=== PATIENT | female | born 1990 | race Caucasian/White ===

== ENCOUNTER 2017-06-29 05:42 | Day surgery (SDC) | payer BC, OTHER ==
[2017-06-23 13:12] LABS: HEMATOCRIT 42.4 % (36.0-47.0); HEMOGLOBIN 14.3 g/dL (12.0-15.5); MEAN CORPUSCULAR HEMOGLOBIN 31.1 pg (27.0-33.4); MEAN CORPUSCULAR HGB CONC 33.8 g/dL (32.0-36.0); MEAN CORPUSCULAR VOLUME 92 fl (80-97); PLATELET COUNT 271 10^3/uL (150-450); RED CELL DISTRIBUTION WIDTH 12.1 % (11.5-14.0); WHITE BLOOD COUNT 7.2 10^3/uL (4.0-10.5)
[2017-06-23 13:31] LABS: APPEARANCE,URINE SLIGHTLY-CLOUDY; BILIRUBIN,URINE NEGATIVE (NEGATIVE); COLOR,URINE YELLOW; GLUCOSE, URINE NEGATIVE (NEGATIVE); KETONES,URINE NEGATIVE (NEGATIVE); LEUKOCYTE ESTERASE,URINE MODERATE (NEGATIVE); NITRITE,URINE NEGATIVE (NEGATIVE); PROTEIN,URINE NEGATIVE (NEGATIVE); UROBILINOGEN,URINE NEGATIVE mg/dL (<2.0)
[2017-06-23 13:38] LABS: ALANINE AMINOTRANSFERASE 44 U/L (9-52); ALBUMIN 4.4 g/dL (3.5-5.0); ALKALINE PHOSPHATASE 64 U/L (38-126); ANION GAP 10 (5-19); ASPARTATE AMINO TRANSFERASE 26 U/L (14-36); BILIRUBIN,DIRECT 0.4 mg/dL (0.0-0.4); BILIRUBIN,TOTAL 0.6 mg/dL (0.2-1.3); BLOOD UREA NITROGEN 9 mg/dL (7-20); CALCIUM 9.3 mg/dL (8.4-10.2); CARBON DIOXIDE 25 mmol/L (22-30); CHLORIDE 106 mmol/L (98-107); GLUCOSE 93 mg/dL (75-110); POTASSIUM 4.4 mmol/L (3.6-5.0); SODIUM 140.8 mmol/L (137-145); TOTAL PROTEIN 7.5 g/dL (6.3-8.2)
[~2017-06-29 05:42] MED LIST: CEFAZOLIN 2 GM/D5W RTU 2 GM/50 ML RTUPB IV PRN; LACTATED RINGERS 1000 ML IV PRN
[2017-06-29] MEDS ORDERED: FENTANYL CITRATE INJ/PF 100 MCG/2 ML AMPUL ONE (06:37)
[2017-06-29] MEDS ORDERED: MIDAZOLAM 2 MG/2 ML INJ ONE (06:37)
[2017-06-29] MEDS ORDERED: PROPOFOL INJ 200 MG/20 ML VIAL IV ONE (06:39)
[2017-06-29] MEDS ORDERED: ACETAMINOPHEN 100 ML IV ONE (06:40)
[2017-06-29] MEDS ORDERED: FENTANYL CITRATE INJ/PF 250 MCG/5 ML AMPULE ONE (06:40)
[2017-06-29] MEDS ORDERED: ONDANSETRON HCL INJ/PF 4 MG/2 ML SDV IV PRN ×2 (09:02→11:40)
[2017-06-29] MEDS ORDERED: DIPHENHYDRAMINE HCL 50 MG/ML VIAL IV PRN (09:02)
[2017-06-29] MEDS ORDERED: MEPERIDINE HCL/PF INJ 25 MG/1 ML DISP.SYRIN IV PRN (09:02)
[2017-06-29] MEDS ORDERED: PROMETHAZINE HCL INJ 25 MG/1 ML VIAL IV PRN (09:02)
[2017-06-29] MEDS ORDERED: FENTANYL CITRATE INJ/PF 100 MCG/2 ML AMPUL IV PRN ×3 (09:02)
[2017-06-29] MEDS ORDERED: SUGAMMADEX SODIUM 200 MG/2 ML SDV IV ONE (10:01)
[2017-06-29] MEDS: FENTANYL CITRATE INJ/PF 100 MCG/2 ML AMPUL ONE ×2 (10:48→10:53)
[2017-06-29] MEDS ORDERED: NALBUPHINE HCL INJ 10 MG/1 ML AMPULE IV PRN (11:41)
[2017-06-29] MEDS ORDERED: OXYCODONE-ACETAMINOPHEN 5-325 MG TABLET PO PRN ×2 (11:41→11:42)
--- NOTE | 2017-06-29 11:44 | OPERATIVE REPORT E ---
Operative Report NAME: CAROL LANDEROS : 1990 AGE: 27Y DATE OF SURGERY: 06/29/2017 ROOM: PREOPERATIVE DIAGNOSIS: Excessive and frequent menstruation with irregular cycle. POSTOPERATIVE DIAGNOSIS: Excessive and frequent menstruation with irregular cycle. PROCEDURE: Robotic hysterectomy. SURGEON: VENESSA BRITT M.D. ANESTHESIA: General. COMPLICATIONS: None. FINDINGS: Normal tubes and ovaries. Small uterus. ESTIMATED BLOOD LOSS: 25 mL. PROCEDURE NOTE: Patient was taken to the OR and placed in a supine position. General anesthesia was induced. She was placed in a dorsal lithotomy position using Burton stirrups. Her perineum, vagina, and abdomen were prepared and draped in a sterile fashion. She was placed in steep Trendelenburg and tolerated the positioning well. At this point a speculum was placed in the vagina and the anterior lip of the cervix was grasped with a tenaculum. The uterus sounded to 8 cm. The V-care uterine manipulator was then placed. A Delgado catheter was placed as well. We then turned our attention to the abdomen and an incision was made 5 cm above the umbilicus. This was carried down to the level of the fascia which was grasped with Ailyn clamps and elevated. The fascia was incised allowing a blunt port to be placed. Laparoscopy confirmed appropriate placement and the abdomen was insufflated with CO2 gas. Next, the lateral ports were placed for the robot. We did use the long ports because of her girth. These were placed under laparoscopic visualization. Next, the right lower quadrant insufflation port was placed under laparoscopic visualization as well. The robot was brought to the table and docked. We used a bipolar cautery on the left and monopolar marisela on the right. View of the pelvis was good. The left round ligament was cauterized with bipolar and cut with monopolar marisela. The left utero-ovarian pedicle was also cauterized and cut and the left broad ligament was cauterized with bipolar cautery and cut with monopolar marisela. The anterior leaflet of the broad ligament was incised creating a bladder flap. Attention was turned to the right side of the uterus. The round ligament was cauterized with bipolar cautery and cut with monopolar marisela. The utero-ovarian pedicle likewise was cauterized and cut and the broad ligament also cauterized and cut with bipolar cautery and monopolar marisela. Now we are at the level of the uterine arteries. The bladder flap had been developed previously. Next the uterine arteries were cauterized close to the body of the cervix with bipolar cautery and cut with monopolar marisela bilaterally. Now we are at the level of the cardinal ligaments and these were likewise cauterized with bipolar cautery and cut with monopolar marisela very close to the cervix. Upon reaching the vaginal angles, a circumferential incision was made with the monopolar marisela on top of the V-care cup. The uterus was removed through the vagina. The vaginal cuff was inspected and there was no active bleeding noted. Next, the monopolar marisela was replaced with a needle rivet driver and grasper replaced the bipolar cautery. The V-Loc suture was passed into the field. The cuff was then closed by starting at the right vaginal angle incorporating anterior vaginal mucosa, lateral side wall and posterior vaginal mucosa, and the needle was placed through the loop in broad type. The anterior vaginal cuff was approximated to the posterior vaginal cuff with a running suture of the V-Loc. Upon reaching the left angle, the anterior vaginal mucosa, lateral side wall and posterior vaginal mucosa were grasped in the V-Loc suture. This was pulled tight which closed the cuff very well. No active bleeding was noted. Several sutures were then placed incorporating anterior vaginal cuff to posterior vaginal cuff moving medially towards the midline of the vaginal cuff. The suture was then cut. Next, the robot was undocked. Laparoscopically we then irrigated the pelvis and suctioned free any fluid. All pedicles were found to be hemostatic. The ureters were identified and noted to be normal size and peristalsing. The lateral ports were removed. The right lower quadrant port was removed as well and the gas was allowed to escape from the abdomen. The umbilical scope and port were removed in unison. The fascia at the umbilicus was closed with a 2-0 Vicryl suture and the skin at all four sites closed with a 4-0 undyed Vicryl suture. The patient was extubated in the OR and taken to recovery in stable condition. DICTATING PHYSICIAN: VENESSA BRITT M.D. [id number] PHY#: [id number] ID: [id number] JOB#: [id number] ACCT: [id number] cc:VENESSA BRITT M.D. >
[2017-06-29] MEDS ORDERED: ROCURONIUM BROMIDE INJ 50 MG/5 ML VIAL IV ONE (15:36)
[2017-06-29] MEDS ORDERED: SUCCINYLCHOLINE CHLORIDE INJ 200 MG/10 ML VIAL ONE (15:36)
[2017-06-29] MEDS ORDERED: DEXAMETHASONE SOD PHOSPHATE INJ 4 MG/1 ML VIAL ONE (15:36)
--- NOTE | 2017-06-30 09:30 | PDOC DISCHARGE SUMMARY ---
General - Admit/Disc Date/PCP Admission Date/Primary Care Provider: VENESSA BRITT MD Discharge Date: 06/30/17 - Discharge Diagnosis (1) Menorrhagia Is this a current diagnosis for this admission?: Yes (2) Dysmenorrhea Is this a current diagnosis for this admission?: Yes - Additional Information Home Medications: Buspirone HCl [Buspar 10 mg Tablet] 1 tab PO TID 06/23/17 Trazodone HCl 1 tab PO HSP PRN 06/23/17 History of Present Illness Patient complains of: Frequent and painful menses. History of Present Illness: CAROL LANDEROS is a 27 year old female She reports a long history of frequent and painful menses not helped with medical management. She declines further medical treatment and requests a hysterectomy. Hospital Course Hospital Course: She underwent a robotic hysterectomy. See op report. She did well the night of surgery. Post op day one she is doing well. She is able to void and is tolerating PO well. She would like to go home. Physical Exam - Physical Exam Vital Signs: Temp Pulse Resp BP Pulse Ox 98.2 F 57 L 16 113/68 98 06/30/17 07:35 06/30/17 07:35 06/30/17 07:35 06/30/17 07:35 06/30/17 07:35 Intake & Output 06/29/17 06/30/17 07/01/17 06:59 06:59 06:59 Intake Total 0 3433 Output Total 1900 Balance 0 1533 Weight 117.93 kg 123.3 kg General appearance: PRESENT: no acute distress, well-developed, well-nourished GI/Abdominal exam: PRESENT: normal bowel sounds, soft. ABSENT: distended, guarding, mass, organolmegaly, rebound, tenderness Result Laboratory Results: 06/23/17 12:15 06/23/17 12:15 Impressions: She is doing well post op day one. Plan Discharge Plan: Home to rest with po pain meds. Followup in the office next week. Percocet written. Pelvic rest for 8 wks. Time Spent: Less than 30 Minutes
[2017-06-30 09:50] LABS: HEMATOCRIT 37.2 % (36.0-47.0); HEMOGLOBIN 12.6 g/dL (12.0-15.5); MEAN CORPUSCULAR HEMOGLOBIN 31.2 pg (27.0-33.4); MEAN CORPUSCULAR HGB CONC 33.8 g/dL (32.0-36.0); MEAN CORPUSCULAR VOLUME 93 fl (80-97); PLATELET COUNT 242 10^3/uL (150-450); RED BLOOD COUNT 4.02 10^6/uL (3.72-5.28); RED CELL DISTRIBUTION WIDTH 12.4 % (11.5-14.0); WHITE BLOOD COUNT 12.6 10^3/uL (4.0-10.5)
[2017-06-30 10:27] VITALS: BP 112/67
== END 2017-06-30 11:30 | disposition home or self-care (01) ==
LOC: OROUT 05:42 → 2S 12:13 → OROUT 06-30 11:30
PROVIDERS: ATTEND Obstetrics & Gynecology
PROC: 8E0W4CZ Robotic Assisted Procedure of Trunk Region, Percutaneous Endoscopic Approach (ICD-10-PCS; 2017-06-29)
PROC: 0UT94ZZ Resection of Uterus, Percutaneous Endoscopic Approach (ICD-10-PCS; principal; 2017-06-29 07:30)
DX: D06.0 Carcinoma in situ of endocervix (principal); N92.1 Excessive and frequent menstruation with irregular cycle; N94.6 Dysmenorrhea, unspecified; E28.2 Polycystic ovarian syndrome; E66.9 Obesity, unspecified; Z79.899 Other long term (current) drug therapy; Z68.42 Body mass index [BMI] 45.0-49.9, adult; Z88.0 Allergy status to penicillin
CPT/HCPCS: 58570; S2900; 36415; 80053; 81001; 81025; 840; 85027; 86850; 86900; 86901; 88307; J0131; J0330; J0690; J1100; J2250; J2300; J2405; J2704; J3010; J3490